=== PATIENT | female | born 1940 | race Caucasian/White ===

== ENCOUNTER 2024-11-28 08:10 | Emergency (ER) | payer MEDICARE, SELFPAY ==
[2024-11-28 08:14] VITALS: BP 123/54; PULSE 90; RESP 20; TEMP 36.4; O2SAT 100
[2024-11-28 09:08] LABS: Influenza A QL RT-PCR Negative (Negative); Influenza B QL RT-PCR Negative (Negative); RSV RNA, RT-PCR Negative (Negative); SARS-CoV-2 RNA PCR Negative (Negative)
--- NOTE | 2024-11-28 10:09 | ED.WEAKNESS ---
HPI - Weakness General Chief complaint: Weakness Stated complaint: fatigue Time Seen by Provider: 11/28/24 10:00 History of Present Illness HPI Narrative: Patient is an 84-year-old female who presents to the ER after [facility] Her son reports she has these periodically when she takes medications, as some of her pills are really big. Patient denies any symptoms at the time of examination. She reports she has a history of high blood pressure but denies diabetes, kidney issues, cigarette smoking. Patient denies any shortness of breath, feelings of food bolus, or recent fevers. Review of Systems Review of Systems: All systems reviewed & are unremarkable except as noted in HPI and below Exam Narrative: GENERAL: Well appearing, well-nourished, non-toxic, in no acute distress. HEAD: Normocephalic, atraumatic. NECK: Supple. No adenopathy, no masses. RESPIRATORY: Airway patent, respirations nonlabored. Clear to auscultation bilaterally, no rales, rhonchi, wheezing. CARDIOVASCULAR: Regular rate and rhythm without murmurs, rubs, or gallops. Peripheral pulses 2+ and equal bilaterally. ABDOMINAL: Soft, nontender, nondistended, no hepatosplenomegaly. Normoactive BS. MUSCULOSKELETAL: Moves all extremities. Strength/ROM intact without gross deformities. SKIN: Warm, dry, normal color. No rashes. NEURO: A&O X3. Speech clear. Cranial nerves II-XII grossly intact. No ataxic movements. PSYCHIATRIC: Appropriate mood and affect. Normal interaction. Course Vital Signs Vital signs: Vital Signs Temperature 36.4 C 11/28/24 08:14 Pulse Rate 90 11/28/24 08:14 Respiratory Rate 11/28/24 08:14 Blood Pressure 123/54 L 11/28/24 08:14 Pulse Oximetry 100 11/28/24 08:14 Oxygen Delivery Room Air 11/28/24 08:14 Temperature 36.4 C 11/28/24 08:14 Pulse Rate 90 11/28/24 08:14 Respiratory Rate 20 11/28/24 08:14 Blood Pressure 123/54 L 11/28/24 08:14 Pulse Oximetry 100 11/28/24 08:14 Oxygen Delivery Room Air 11/28/24 08:14 MDM - Weakness MDM Narrative Medical decision making narrative: Patient is an 84-year-old female who presents to the ER after having a [facility]. Her son reports she has these periodically when she takes medications, as some of her pills are really big. Patient denies any symptoms at the time of examination. She reports she has a history of high blood pressure but denies diabetes, kidney issues, cigarette smoking. Patient denies any shortness of breath, feelings of food bolus, or recent fevers. Labs Ordered: None necessary Imaging Ordered: None necessary Medications Ordered: None necessary Diagnosis: Resolved food bolus Patient Education/Shared MDM: Patient denies any acute symptoms at the time of examination. She verbalizes she is ready to go home. Patient strongly advised to maintain hydration status upon discharge and follow-up with her PCP. She will be discharged home with no new prescriptions. Strict return precautions provided. Patient verbalized understanding is in agreement with plan. Vital signs stable at time of discharge. All questions answered. Differential Diagnosis Differential diagnosis: Likely hypoglycemia, dehydration and other (food bolus) Lab Data Attestation: I reviewed the patient's lab results. Labs: Lab Results 11/28/24 Range/Units 08:26 Influenza A (RT-PCR) Negative (Negative) Influenza B (RT-PCR) Negative (Negative) RSV (RT-PCR) Negative (Negative) SARS-CoV-2 RNA (RT-PCR) Negative (Negative) Discharge Plan Discharge Clinical Impression: Food impaction of esophagus Patient Disposition: Home, Self-Care Condition: Stable Instructions: Antibiotic Form, Esophageal Foreign Body (ED) Additional Instructions: Please return to the ER with an worsening symptoms. Follow-up with primary care provider in the next 2-3 days. Take all medications as regularly prescribed. Patient Language: Colombian Follow-up/Referrals: PHYSICIAN,OPERATION SUPERVISOR [Primary Care Provider] - Time of Disposition: 10:22
[2024-11-28 10:42] VITALS: BP 133/70; PULSE 75; RESP 14; O2SAT 99
== END 2024-11-28 13:18 | disposition home or self-care (01) ==
LOC: ANHED 10:59
PROVIDERS: Emergency Medicine; Emergency Provider Registered Nurse
DX: T18.128A Food in esophagus causing other injury, initial encounter (principal); W44.F3XA Food entering into or through a natural orifice, initial encounter; Z11.59 Encounter for screening for other viral diseases
CPT/HCPCS: 87637; 99283